=== PATIENT | male | born 1965 | race Caucasian/White ===

== ENCOUNTER 2024-02-27 21:56 | Emergency (ER) | payer OTHER ==
[~2024-02-27] VITALS: Ht 152.4 cm; Wt 79.5 kg
[2024-02-27 22:22] VITALS: BP 116/84; PULSE 77; RESP 20; TEMP 98.1; O2SAT 97
[2024-02-27] MEDS: IBUPROFEN 600 MG TAB PO ONE (23:29)
[2024-02-28] MEDS ORDERED: IBUP-2213 PO (00:10)
[2024-02-28] MEDS ORDERED: ACET500T99 PO (00:10)
[2024-02-28 00:20] VITALS: BP 116/84; PULSE 77; RESP 20; TEMP 98.1; O2SAT 97
== END 2024-02-28 00:17 | disposition home or self-care (01) ==
LOC: MED 21:56
DX: S93.402A Sprain of unspecified ligament of left ankle, initial encounter (principal); X58.XXXA Exposure to other specified factors, initial encounter; Y92.89 Other specified places as the place of occurrence of the external cause; Y93.89 Activity, other specified; Y99.8 Other external cause status
CPT/HCPCS: 73610; 99283; Q0092